=== PATIENT | male | born 2000 | race Caucasian/White ===

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

== ENCOUNTER → 2020-06-13 | Outpatient (CLI) | payer MEDICAID ==
[~2020-06-13] MED LIST: CYCL10TA9 PO
--- NOTE | 2020-06-13 17:07 | Diagnostic Imaging Report ---
PROCEDURE: CT abdomen and pelvis with contrast. TECHNIQUE: Multiple contiguous axial images were obtained through the abdomen and pelvis after administration of intravenous contrast. Auto Exposure Controls were utilized during the CT exam to meet ALARA standards for radiation dose reduction. All CT scans use one or more of the following dose optimizing techniques: automated exposure control, MA and/or KvP adjustment based on patient size and exam type or iterative reconstruction. INDICATION: Left upper quadrant abdominal pain and lump. No prior studies are available for comparison. Lung bases are clear. No discrete liver mass is identified. Gallbladder is unremarkable. No biliary ductal dilatation is seen. Pancreas and spleen are unremarkable. No adrenal mass is identified. Kidneys are unremarkable. Aorta is nonaneurysmal. The small and large bowel loops are normal caliber. There is no obstruction. Bladder is unremarkable. No free fluid or fluid collection is seen. The prostate is unremarkable. No definite abdominal or pelvic lymphadenopathy is seen. IMPRESSION: Essentially unremarkable CT of abdomen and pelvis with contrast. No acute feature is identified. Dictated by: Dictated on workstation # [id number]
== END ==
LOC: RAD 16:08
PROVIDERS: ATTEND Nurse Practitioner Family
DX: R19.02 Left upper quadrant abdominal swelling, mass and lump (principal); R10.12 Left upper quadrant pain
CPT/HCPCS: 74177